=== PATIENT | male | born 1980 | race Two or more races ===

== ENCOUNTER 2020-01-23 22:53 | Emergency (ER) | payer MEDICAID ==
[~2020-01-23] VITALS: Ht 160 cm; Wt 54.4 kg
--- NOTE | 2020-01-24 | NUR ---
BIB FOR C/O H/A DUE TO INJURY. " I WAS ON A LADDER AT WORK WHEN A PIECE OF WOOD FEEL ON MY HEAD AND MADE ME FALL ON BACK OF MY HEAD". PT NOTED W/ L SIDED HEAD AND FACE SWELLING. ALSO W/ L UPPER LIP LACERATION . DENIED KO, N/V OR DIZZINESS. PT WAS PLACED ON A MONITOR. VSS. WILL CONT TO MONITIR.
[2020-01-24] MEDS ORDERED: LIDOCAINE /MPF 1% VIAL 5 ML VIAL ONE (01:17)
[2020-01-24] MEDS ORDERED: LIDOCAINE 1% INJ 50 ML MDV IJ ONE (01:30)
[2020-01-24] MEDS ORDERED: IBUPROFEN 600 MG TABLET PO ONE ×2 (02:15→02:30)
[2020-01-24 02:31] VITALS: BP 126/54
--- NOTE | 2020-01-24 02:32 | NUR ---
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
--- NOTE | 2020-01-24 02:33 | NUR ---
Patient discharged to home in stable condition. Written and verbal after care instructions given. Patient verbalizes understanding of instruction.
== END 2020-01-24 02:33 | disposition home or self-care (01) ==
LOC: ER 22:53
DX: S01.511A Laceration without foreign body of lip, initial encounter (principal); S09.8XXA Other specified injuries of head, initial encounter; W26.8XXA Contact with other sharp object(s), not elsewhere classified, initial encounter; Y93.89 Activity, other specified; Y92.89 Other specified places as the place of occurrence of the external cause; Y99.0 Civilian activity done for income or pay
CPT/HCPCS: 40650; 70450; 72125; 99285; J3490

== ENCOUNTER 2020-02-01 20:12 | Emergency (ER) | payer MEDICAID ==
[~2020-02-01] VITALS: Ht 160 cm; Wt 54.4 kg
[2020-02-01 20:19] VITALS: BP 124/81
== END 2020-02-01 20:50 | disposition home or self-care (01) ==
LOC: ER 20:14
DX: S01.511D Laceration without foreign body of lip, subsequent encounter (principal); X58.XXXD Exposure to other specified factors, subsequent encounter

== ENCOUNTER 2023-07-24 10:21 | Emergency (ER) | payer MEDICAID ==
[2023-07-24] MEDS ORDERED: LIDOCAINE 2% 20 ML MDV ONE (10:43)
[2023-07-24] MEDS ORDERED: HYDROCODONE/APAP 5/325MG TABLET ONE (10:56)
[2023-07-24] MEDS ORDERED: HYDROCODONE/APAP 5/325MG TABLET PO ONE (11:00)
[2023-07-24] MEDS ORDERED: GELATIN SPONGE,ABSORBABLE 1 SPONGE SPONGE TP ONE ×2 (12:56→13:00)
[2023-07-24] MEDS ORDERED: ONDANSETRON 4 MG TAB.RAPDIS ONE (13:00)
[2023-07-24] MEDS ORDERED: ONDANSETRON HCL 4 MG/5 ML SOLUTION PO ONE (13:00)
[2023-07-24] MEDS ORDERED: CEPH500T PO ×2 (13:19→22:31)
[2023-07-24] MEDS ORDERED: HYDR-3976 GT ×3 (13:21→13:52)
[2023-07-24] MEDS ORDERED: HYDR-3980 PO ×2 (13:34→22:31)
== END 2023-07-24 14:02 | disposition home or self-care (01) ==
LOC: ER 10:26
DX: S62.522A Displaced fracture of distal phalanx of left thumb, initial encounter for closed fracture (principal); Z79.899 Other long term (current) drug therapy; W27.0XXA Contact with workbench tool, initial encounter; Y93.89 Activity, other specified; Y92.89 Other specified places as the place of occurrence of the external cause; Y99.8 Other external cause status
CPT/HCPCS: 12002; 29130; 73140; 99284; J3490; Q0162

== ENCOUNTER 2023-07-26 12:39 | Emergency (ER) | payer MEDICAID ==
[~2023-07-26] VITALS: Ht 160 cm; Wt 56.7 kg
[~2023-07-26 12:39] MED LIST: CEPH500T PO; HYDR-3980 PO
[2023-07-26 12:45] VITALS: BP 126/98; TEMP 98
[2023-07-26] MEDS ORDERED: IBUPROFEN 400 MG TABLET ONE (13:48)
[2023-07-26] MEDS ORDERED: IBUPROFEN 400 MG TABLET PO ONE (14:00)
[2023-07-26 15:07] VITALS: O2SAT 98
== END 2023-07-26 15:08 | disposition home or self-care (01) ==
LOC: ER 12:54
DX: S61.012D Laceration without foreign body of left thumb without damage to nail, subsequent encounter (principal); Z79.899 Other long term (current) drug therapy; X58.XXXD Exposure to other specified factors, subsequent encounter
CPT/HCPCS: 99282; A6403